=== PATIENT | male | born 1960 | race Caucasian/White ===

== ENCOUNTER 2020-01-02 14:21 | Inpatient (IN) | payer OTHER, SELFPAY ==
[2020-01-02] VITALS (11 sets, daily range): BP systolic 111–151; BP diastolic 78–105; PULSE 66–148; RESP 18–27; TEMP 36.6–37.1; O2SAT 96–99
--- NOTE | ~2020-01-02 | XR_ITS ---
EXAMINATION: XR abdomen/kub 1V INDICATION: Abdominal distention and left upper quadrant pain TECHNIQUE: Supine views of the abdomen were obtained on 2 radiographs. COMPARISON: None FINDINGS: The bowel gas pattern is normal. No dilated loops of bowel are seen. There is moderate lumb ar spondylosis. No abnormal calcifications are identified. Cardiomegaly is noted. IMPRESSION: 1. No radiographic correlate for the patient's symptoms. Reviewed, dictated and finalized at location A.
--- NOTE | ~2020-01-02 | XR_ITS ---
EXAMINATION: XR chest 2V DATE: 01/02/2020 15:12 INDICATION: Shortness of breath and loss of appetite TECHNIQUE: PA and lateral views of the chest are obtained. COMPARISON: 08/29/2015 FINDINGS: There are minimal right basilar airspace opacities. Small right pleural effusion is present . There is no pneumothorax. The cardiomediastinal silhouette is normal. There is mild thoracic spondy losis. IMPRESSION: 1. Small right pleural effusion with likely passive atelectasis of the right lung base. 2. Cardiomegaly. Reviewed, dictated and finalized at location A. IMPRESSION: 1. Small right pleural effusion with likely passive atelectasis of the right ishaan ng base. 2. Cardiomegaly.
--- NOTE | ~2020-01-02 | NM_ITS ---
EXAMINATION: NM hepatobiliary w pharm DATE: 01/03/2020 11:25 INDICATION: Abdominal pain. Abnormal right upper quadrant ultrasound. COMPARISON: Ultrasound dated 01/02/2020 TECHNIQUE: 5.1 mCi Tc-99m mebrofenin (Choletec) was administered intravenously. Scintigraphic images of the abdomen were obtained for one hour. 1.5 mcg sincalide (Kinevac) was administered by slow intr avenous infusion, and imaging was continued for 30 minutes. Gallbladder ejection fraction was calcula kenneth by the technologist. FINDINGS: There is normal clearance of radiotracer from the blood pool. There is homogeneous tracer uptake by t he liver. Activity progresses to the gallbladder and bowel. The gallbladder ejection fraction (GBEF) is 71% (normal 10-90%, but most patient with gallbladder dysfunction have GBEF < 35% which does over lap with the normal range). IMPRESSION: 1. Normal hepatobiliary scan. Reviewed, dictated and finalized at location A.
--- NOTE | ~2020-01-02 | US_ITS ---
US right upper quadrant DATE: 01/02/2020 16:06 INDICATION: Abdominal pain TECHNIQUE: Real-time imaging of liver, pancreas, gallbladder areas COMPARISON: 01/02/2020 KUB FINDINGS: Examination is limited due to difficulty penetrating the liver. No apparent hepatic or pancreatic space-occupying mass lesion is noted. Normal portal venous flow direction. The gallbladder wall is thickened, with mild pericholecystic fluid. No gallstones are identified. Neg ative sonographic Mckeon's sign. IMPRESSION: Gallbladder wall thickening and mild pericholecystic fluid; cannot exclude acute cholecys titis. Consider radionuclide hepatobiliary scan as clinically appropriate Reviewed, dictated and finalized at Location A. Reviewed, dictated and finalized at location A. IMPRESSION: Gallbladder wall thickening and mild pericholecystic fluid; cannot exclude acute cholecystitis. Consider radionuclide hepatobiliary scan as clinic ally appropriate
--- NOTE | 2020-01-02 14:34 | ECG_ITS ---
Measurements Intervals [place] Rate: 177 P: NM: 0 QRS: 50 QRSD: 96 T: 69 QT: 248 QTc: 426 Interpretive Statements ATRIAL FIBRILLATION WITH RAPID VENTRICULAR RESPONSE ABNORMAL ECG Electronically Signed On 01-02-2020 15:28:43 CDT by Robbin Kauffman D.O.
--- NOTE | 2020-01-02 14:50 | ED.ABDPAIN ---
HPI - Abdominal Pain General Chief Complaint: Abdominal Pain Stated Complaint: ABD PAIN/L FLANK PAIN Time Seen by Provider: 01/02/20 14:26 History of Present Illness HPI narrative: Patient is a 59-year-old male who presents ER with complaint of epigastric abdominal discomfort. Ongoing for the last week. No radiation. States he feels like he is full. Odors of food make him extremely nauseated. He also notes that he has been much more fatigued and having shortness of breath with exertion. No chest pain/chest pressure. Reports he is attempted to use restroom over 10 times a day with minimal results. Reports he has been belching slightly more than typical. No history of abdominal surgeries. Related Data Home Medications Medication Instructions Recorded Confirmed No Home Medications 01/02/20 01/02/20 Allergies Allergy/AdvReac Type Severity Reaction Status Date / Time No Known Allergies Allergy Unverified 01/02/20 14:48 Review of Systems Review of Systems: All systems reviewed & are unremarkable except as noted in HPI and below Constitutional: Constitutional: Denies chills, Denies fever(s) and Reports weakness Cardiovascular: Cardiovascular: Denies chest pain and Denies radiating jaw, neck or arm pain Respiratory: Respiratory: Denies cough, Reports dyspnea and Denies wheezing Gastrointestinal: Gastrointestinal: Reports abdominal pain, Reports bloating, Denies diarrhea, Reports nausea and Denies vomiting Genitourinary: Genitourinary: Denies dysuria and Denies urinary frequency PMFSH Past Medical History Medical History (Updated 01/02/20 @ 16:23 by Daryl Culver MD) Gastric ulcer No pertinent past medical history Surgical History Surgical History (Updated 01/02/20 @ 15:00 by Daryl Culver MD) H/O foot surgery Family History Family History (Updated 05/10/14 @ 07:13 by DOCTOR UNKNOWN) Father Hypertension Social History Social History Smoking status: Former smoker Smoking end date: 09/13/98 Alcohol intake: current Gender identity (if verbalized by the patient): Male Exam Narrative: Exam Narrative: GENERAL: Well-appearing, well-nourished, and in no acute distress. HEAD: Normocephalic, atraumatic. ENT: Mucous membranes moist. NECK: Supple. CHEST: Clear to auscultation. No respiratory distress. HEART: Tachycardic and irregular regular. Loud murmur heard best to the left lower sternal border, precordial normal peripheral pulses. ABDOMEN: Soft, mildly distended with epigastric tenderness. EXTREMITIES: Normal range of motion. No edema. SKIN: Warm, dry, no rash. NEURO: Alert and oriented x3. PSYCH: Normal mood and affect. Course Course Emergency Course: Admit to the hospitalist service. Cardiology will consult. Patient on diltiazem drip. Will obtain HIDA scan tomorrow. Vital Signs Vital signs: Vital Signs Temperature 98.8 F 01/02/20 14:26 Pulse Rate 66 01/02/20 14:26 Respiratory Rate 18 01/02/20 14:26 Blood Pressure 151/92 H 01/02/20 14:26 Pulse Oximetry 98 01/02/20 14:26 Temperature 98.8 F 01/02/20 14:26 Pulse Rate 126 H 01/02/20 16:03 Respiratory Rate 18 01/02/20 16:03 Blood Pressure 129/94 H 01/02/20 16:03 Pulse Oximetry 99 01/02/20 16:03 MDM - Abdominal Pain Lab Data Result diagrams: 01/02/20 14:42 01/02/20 14:42 Labs: Lab Results 01/02/20 01/02/20 01/02/20 Range/Units 14:42 14:42 14:42 WBC 11.5 H (4.5-10.0) K/mm3 RBC 4.90 (4.6-6.20) M/mm3 Hgb 15.5 (14.0-18.0) g/dL Hct 44.1 (42.0-52.0) % MCV 90.0 (80-100) fl MCH 31.6 (26-34) pg MCHC 35.1 (32-36) g/dl RDW 12.9 (11.5-14.5) % Plt Count 207 (150-375) k/mm3 MPV 10.4 (7.4-10.4) fl Immature Gran % (Auto) 0.5 (0-0.5) % Neut % (Auto) 73.8 H (45.5-73.1) % Lymph % (Auto) 16.0 L (18.3-44.2) % Howell % (Auto) 9.2 H (2.6-8.5) % Eos % (Auto) 0.1 (0-4.4) % Baso % (Auto)
[2020-01-02 14:51] LABS: Basophils Absolute Auto 0.1 K/mm3 (0.0-0.1); Basophils Percent Auto 0.4 % (0.2-1.2); Eosinophils Percent Auto 0.1 % (0-4.4); Hematocrit 44.1 % (42.0-52.0); Hemoglobin 15.5 g/dL (14.0-18.0); Immature Granulocyte Absolute 0.06 K/mm3 (0.00-0.031); Immature Granulocyte Percent A 0.5 % (0-0.5); Lymphocytes Absolute Auto 1.84 K/mm3 (0.9-3.2); Mean Corpuscular HGB Conc 35.1 g/dl (32-36); Mean Corpuscular Hemoglobin 31.6 pg (26-34); Mean Platelet Volume 10.4 fl (7.4-10.4); Monocytes Absolute Auto 1.1 K/mm3 (0.1-0.6); Monocytes Percent Auto 9.2 % (2.6-8.5); Neutrophils Absolute Auto 8.5 K/mm3 (1.3-6.7); Neutrophils Percent Auto 73.8 % (45.5-73.1); Platelet Count Result 207 k/mm3 (150-375); Red Cell Distribution Width 12.9 % (11.5-14.5); White Blood Count 11.5 K/mm3 (4.5-10.0)
[2020-01-02 15:01] LABS: INR 1.5; Partial Thromboplastin Time 28.1 SECONDS (22.3-36.8); Prothrombin Time 17.3 Seconds (11.1-14.7)
[2020-01-02 15:03] LABS: Alanine Aminotransferase 222 U/L (4-50); Albumin Level 3.9 g/dL (3.5-5.1); Alkaline Phosphatase 65 U/L (38-126); Aspartate Amino Transferase 238 U/L (17-59); Bilirubin,Total 1.1 mg/dL (0.2-1.3); Blood Urea Nitrogen 28 mg/dL (9-20); Calcium 8.9 mg/dL (8.4-10.2); Carbon Dioxide 20 mmol/L (22-30); Chloride 105 mmol/L (98-107); Estimated CRCL calculation 47 ml/min; Estimated Glomerular Filt Rate 52; Glucose 135 mg/dL (75-110); Potassium 3.9 mmol/L (3.4-5.0); Sodium 137 mmol/L (137-145)
[2020-01-02 15:15] LABS: Troponin I 0.027 ng/mL (0.000-0.034)
[2020-01-02 15:25] LABS: NT Pro B Type Natriuretic Pept 3480 PG/ML (5-100)
--- NOTE | 2020-01-02 17:02 | PM.PNCARD ---
Progress Note: A&P Assessment and Plan (1) Atrial fibrillation with rapid ventricular response: Code(s): I48.91 - Unspecified atrial fibrillation Status: Acute Assessment and Plan: He has atrial fibrillation initially with rapid ventricular response rate is better now with Cardizem, with start of metoprolol 25 b.i.d., and then maintain 60-70, he would need anticoagulation for the long run, but for the time being will not start anticoagulation in case he is going for any procedure. Will get echocardiogram to evaluate current left ventricular systolic function, and look for severity of mitral regurgitation (2) CHF (congestive heart failure): Code(s): I50.9 - Heart failure, unspecified Status: Acute Assessment and Plan: He seems to have acute decompensated congestive heart failure, probably worsened by atrial fibrillation. Will get echocardiogram to look for structural heart disease, continue with diuresis with Lasix 20 b.i.d. IV push (3) Mitral valve regurgitation: Code(s): I34.0 - Nonrheumatic mitral (valve) insufficiency Status: Acute Assessment and Plan: Echocardiogram for further evaluation Additional Plan Thank you for allowing me to participate in this patient's care, I will be following up with you. Please do not hesitate to call me for any other inquiry Subjective Date/time seen: 01/02/20 17:02 59 years old gentleman, with no significant past history, came to the hospital because of abdominal pain and noted to have palpitation his EKG showed atrial fibrillation with rapid ventricular response. He stated that he has been getting occasional episode of palpitation, not to the point that he would have to go to the hospital for that, however he was noted to have atrial fibrillation with rate as high as 150. Started on Cardizem drip with some improvement of the heart rate. Upon my evaluation in the emergency room his heart rate as 135, his blood pressure now is 128/60. No known history of cardiac disease is relatively active with no limitation. He admits to drinking alcohol on occasions, last drink was 2 days ago. He has [id number] shortness breath or dyspnea on exertion which has been noticed more lately, but no orthopnea, he has some [id number] leg swelling. No chest pain. No syncope Review of Systems Constitutional: Constitutional: Denies body ache(s), Denies chills, Reports fatigue and Reports lethargy Cardiovascular: Cardiovascular: Reports as per HPI, Denies chest pain, Reports pedal edema and Reports leg edema Respiratory: Respiratory: Reports dyspnea on exertion Gastrointestinal: Gastrointestinal: Reports abdominal pain Exam Narrative: Exam Narrative: Awake alert oriented x3 not in acute distress Neck is supple, has JVD, no carotid bruit Chest: Good air entry bilaterally, lungs are clear to auscultation and percussion bilaterally Cardiovascular: Irregularly irregular, 3/6 systolic murmur noted left sternal border, and a 3/6 systolic murmur at the apex with radiation to the axillary area Abdomen: Soft nontender bowel sounds positive Extremities: +1 edema has good pulses distally bilaterally Objective Data Vital Signs Vital Signs: Vital Signs - 24 hr 01/02/20 14:26 01/02/20 15:00 01/02/20 16:03 Temperature 37.1 C Pulse Rate 66 148 H 126 H Respiratory Rate 18 27 H 18 Blood Pressure 151/92 H 111/89 129/94 H Pulse Oximetry 98 97 99 01/02/20 16:55 Temperature Pulse Rate 130 H Respiratory Rate 27 H Blood Pressure 135/105 H Pulse Oximetry 98 Meds/Results Medications: Active Medications Generic Name Dose Route Start Last Admin Trade Name Freq PRN Reason Stop Dose Admin Acetaminophen 650 mg 01/02/20 16:00 Tylenol Tablet PO Q4H PRN Mild Pain (1-3) or Fever Hydrocodone Bitart/Acetaminophen 1 tab 01/02/20 16:00 Rayle 5-325 Mg PO Q4H PRN Pain Rated 4-6 Furosemide 20 mg 01/02/20 17:00 Lasix Inj I
--- NOTE | 2020-01-02 17:30 | PM.IMHP ---
H&P: HPI History of Present Illness Chief complaint: Abdominal pain. Narrative: Sergio Miguel is a very pleasant 59-year-old gentleman with remote history of peptic ulcer who presented to the emergency department earlier this afternoon from work for evaluation of abdominal pain. Over the past 1 week or so, he has had intermittent abdominal discomfort, mainly in the epigastrium and right upper quadrant. He has a difficult this time describing the pain but tells me ?it feels like indigestion.? It does occasionally radiate around to the back. He gives no significant aggravating factors, and tells me that on occasion fluid will help with the discomfort, and on other occasions it will make the discomfort worse. He also reports a decrease in appetite and occasional early satiety. While at work today, he developed severe nausea when he walked into the break room as well as racing heart, shortness of breath, and dizziness. Because he continues to have these symptoms, he came into the emergency department today for evaluation. On arrival, he was found to be in atrial fibrillation with rapid ventricular response, which is a new diagnosis for him. With further questioning, he does admit that he has had intermittent racing heart and palpitations since July 2019. They last anywhere from a few minutes up to a half of an hour and occur perhaps 1 time per month. His creatinine was also elevated, and he gives no history of known kidney disease. He does admit that he feels a bit dehydrated due to decreased oral intake and decreased liquid intake, as the water fountain is at work have been closed down for the last month due to the COVID-19 pandemic, and he rarely gets time to go to the break room for drinks during the work day. He has since noticed a decrease in his urine output and darker urine. He has not had exertional chest pain or shortness of breath. No known history of gallbladder disease. No history of pancreatitis. Review of Systems Review of Systems: Narrative: Twelve systems were reviewed with pertinent positives and negatives as per HPI. Weight has remained stable. No headache. No fever, chills, or sweats. No recent cold or flu-like symptoms. No vomiting or diarrhea. He has occasional edema about the ankles when removing his socks after a long day of work. No history of venous thromboembolism. No history of alcohol withdrawal signs or symptoms. Except as documented, all other systems were reviewed and are negative. [facility] Past Medical History Medical History (Updated 01/02/20 @ 21:18 by Nina Aguilar PA-C) Gastric ulcer As a senior in high school. Surgical History Surgical History (Updated 01/02/20 @ 21:13 by Nina Aguilar PA-C) History of foot surgery Bone spurs removed from foot. Family History Family History (Updated 01/02/20 @ 21:14 by Nina Aguilar PA-C) Father Dementia Mother Hypertension Sibling Epilepsy Social History Social History (Updated 01/02/20 @ 21:14 by Nina Aguilar PA-C) Social History: The patient is and lives with his in [place], [place]. They have 2 children, who are healthy. He smoked maybe a quarter of a pack of cigarettes per day for 5 to 10 years and quit in 1998. He drinks maybe 2 beers a day. No drug use. His , Jaclyn, is his surrogate decision maker and he wishes to be a full code. Smoking packs per day: 0.25 Smoking cigarettes per day: 5.0 Years smoked: 5 Smoking pack-years: 1.25 Spiritual care concerns: No Agree to blood products: Yes Meds Home Medications and Allergies Home Medications Medication Instructions Recorded Confirmed Type No Home Medications 01/02/20 01/02/20 History Allergies Allergy/AdvReac Type Severity Reaction Status Date / Time No Known Allergies Allergy Verified 01/02/20 17:49 Vital Signs Vital Signs - 24 hr 01/02/20 14:26 01/02/20 15:00 01/02/20 16:03 Temperature 98.8 F
[2020-01-02] MEDS: FUROSEMIDE INJ 40 MG/4 ML VIAL 20 MG IV PUSH (17:47)
--- NOTE | 2020-01-02 17:58 | ADMGEN ---
This patient, Sergio Miguel, was admitted to IMU Room 231-01 on 01-02-2020 at 1725. Patient/family oriented to hospital policies and general routines including ID bracelet, bed and alarms, visiting hours, pain management, procedures, bathroom and other care routines, personal items, smoking policy, room service/diet, and visiting hours. Valuables list has been completed. Information on how to activate the Rapid Response Team has been discussed. Patient/Family are encouraged to report perceived risks to care and to ask questions if they do not understand what they are told or what they should do.
[2020-01-02] MEDS: METOPROLOL TARTRATE 25 MG TABLET PO (20:52)
[2020-01-03] VITALS (39 sets, daily range): BP systolic 94–147; BP diastolic 63–92; PULSE 52–142; RESP 15–21; TEMP 36.5–37.9; O2SAT 94–100
--- NOTE | 2020-01-03 | ECHO_ITS ---
Patient Info Name: Sergio Miguel Age: 59 years : 1960 Gender: Male Ht: 66 in Wt: 163 lbs BSA: 1.87 m2 HR: 135 bpm BP: 109 / 74 mmHg Heart Rhythm: Atrial Fibrillation Technical Quality: Good Exam Date: 01/03/2020 11:51 AM Exam Location: [facility] Patient Status: Inpatient Admit Date: 01/03/2020 Staff Ordering Physician: Robert Vasquez MD ([email or web address]) Rad Technologist: Jewel Win RDCS Attending Provider: Laura Mueller MD Exam Type: CA echo transesophageal Study Info Indications I34.0 - Nonrheumatic mitral (valve) insufficiency Three dimensional echocardiographic imaging is performed during the transesophageal echocardiogram. Complete two-dimensional, color flow and Doppler transesophageal study is performed. History/Risk Factors Mitral regurtitation. Medications The patient was premedicated with 5.00 mg intravenous Versed. The patient was premedicated with 100.00 mcg intravenous Fentanyl. The patient was administered viscous Xylocaine 2% by mouth. Sedation started time 11:52, end time 12:27. Sedation was administered by registered nurse under my supervision. Procedure Details The patient arrived in a fasting state after obtaining informed consent. The transesophageal probe was passed into the posterior pharynx, mid-esophagus, distal esophagus, and gastric fundus. Imaging was performed at multiple levels. The patient tolerated the procedure well and there were no complications. The patient was transferred out of the examination area in satisfactory condition. th. Summary 1. There is severe mitral regurgitation with eccentric (anteriorly directed) jet. There is flail P2 segment of the posterior mitral leaflet causing very eccentric jet with severe mitral regurgitation. 2. Aortic valve leaflets are mildly thickened. 3. There is mild to moderate aortic valve regurgitation. 4. The left ventricle is mildly dilated in size. 5. The left ventricular systolic function is normal. EF 60%. 6. No PFO by color doppler and by agitated saline. 7. No left atrial appendage thrombus. 8. Patient is in Atrial fibrillation with heart rate of \R\120. Left Ventricle The left ventricle is mildly dilated in size. The left ventricular systolic function is normal. EF 60%. Patient is in Atrial fibrillation with heart rate of \R\120. Right Ventricle The right ventricle is normal in size and systolic function. Left Atria The left atrium is mildly to moderately dilated. Right Atria The right atrium is normal in size. Atrial Septum No PFO by color doppler and by agitated saline. Atrial Appendage No left atrial appendage thrombus. Aortic Valve The aortic valve is trileaflet. Aortic valve leaflets are mildly thickened. There is no aortic valve stenosis. There is mild to moderate aortic valve regurgitation. Pulmonic Valve The pulmonic valve is normal. There is no pulmonic valve stenosis. There is no pulmonic regurgitation. Mitral Valve There is severe mitral regurgitation with eccentric (anteriorly directed) jet. There is flail P2 segment of the posterior mitral leaflet causing very eccentric jet with severe mitral regurgitation. Tricuspid Valve The tricuspid valve leaflets are normal. There is mild tricuspid valve regurgitation. Pericardium/Pleural The pericardium appears normal. There is no pericardial effusion. Aorta The aortic root size at the sinus of Valsalva is normal. The prox ascending aorta si
[2020-01-03 00:08] LABS: Troponin I 0.042 ng/mL (0.000-0.034)
[2020-01-03 05:11] LABS: Hematocrit 39.5 % (42.0-52.0); Hemoglobin 13.6 g/dL (14.0-18.0); Mean Corpuscular HGB Conc 34.4 g/dl (32-36); Mean Corpuscular Hemoglobin 31.6 pg (26-34); Mean Corpuscular Volume 91.9 fl (80-100); Mean Platelet Volume 10.7 fl (7.4-10.4); Platelet Count Result 176 k/mm3 (150-375); Red Cell Distribution Width 13.2 % (11.5-14.5); White Blood Count 9.7 K/mm3 (4.5-10.0)
[2020-01-03 05:24] LABS: Alanine Aminotransferase 214 U/L (4-50); Albumin Level 3.3 g/dL (3.5-5.1); Alkaline Phosphatase 51 U/L (38-126); Aspartate Amino Transferase 145 U/L (17-59); Bilirubin,Total 1.3 mg/dL (0.2-1.3); Blood Urea Nitrogen 21 mg/dL (9-20); Calcium 8.3 mg/dL (8.4-10.2); Carbon Dioxide 24 mmol/L (22-30); Chloride 104 mmol/L (98-107); Estimated CRCL calculation 59 ml/min; Estimated Glomerular Filt Rate > 60; Glucose 91 mg/dL (75-110); Phosphorus 3.9 mg/dL (2.5-4.5); Potassium 3.3 mmol/L (3.4-5.0); Sodium 137 mmol/L (137-145)
--- NOTE | 2020-01-03 06:00 | ECHO_ITS ---
Patient Info Name: Sergio Miguel Age: 59 years : 1960 Gender: Male Ht: 66 in Wt: 163 lbs BSA: 1.87 m2 HR: 110 bpm BP: 106 / 75 mmHg Heart Rhythm: Atrial Fibrillation Technical Quality: Good Exam Date: 01/03/2020 8:58 AM Exam Location: [facility] Patient Status: Inpatient Admit Date: 01/02/2020 Staff Ordering Physician: Daryl Culver MD Electro Plater: Jewel Win RDCS Attending Provider: Laura Mueller MD Referring Physician: Palomo JEFFREY; Exam Type: CA echo doppler color flow Study Info Indications I48.1 - Persistent atrial fibrillation Complete two-dimensional, color flow and Doppler transthoracic echocardiogram is performed. Strain analysis performed. History/Risk Factors Atrial fibrillation w/ RVR; CHF, murmur, trop bump and BNP 3480. Summary 1. Left ventricular chamber dimension is mildly enlarged. 2. Left ventricular systolic function is normal, estimated at 60-65%. 3. Left atrial chamber dimension is moderately enlarged. 4. There is flail segment of the posterior mitral valve leaflet (likely P2 segment) associated with eccentric (anteriorly directed) mitral regurgitation jet. Mitral regurgitation is at least moderate (could be underestimated due to very eccentric jet). 5. Moderate pulmonary hypertension, estimated pulmonary arterial systolic pressure is 60-65 mmHg. 6. Dilated inferior vena cava with <50% collapse upon inspiration consistent with elevated right atrial pressure. Left Ventricle Left ventricular chamber dimension is mildly enlarged. Left ventricular systolic function is normal, estimated at 60-65%. There is no increased left ventricular wall thickness. Left ventricular septal wall motion is normal. The left ventricular diastolic function is indeterminate. Right Ventricle Right ventricular chamber dimension is top normal in size. Right ventricular systolic function is normal. Left Atria Left atrial chamber dimension is moderately enlarged. Right Atria Right atrial chamber dimension is normal. Aortic Valve The aortic valve is trileaflet. There is mild aortic valve sclerosis. There is no aortic valve stenosis. There is no aortic valve regurgitation. Pulmonic Valve The pulmonic valve is normal. There is no pulmonic valve stenosis. There is no pulmonic regurgitation. Mitral Valve There is no mitral valve stenosis. There is no mitral valve regurgitation. There is flail segment of the posterior mitral valve leaflet (likely P2 segment) associated with eccentric (anteriorly directed) mitral regurgitation jet. Mitral regurgitation is at least moderate (could be underestimated due to very eccentric jet). }. Tricuspid Valve The tricuspid valve leaflets are normal. There is no significant tricuspid valve stenosis. There is trace tricuspid valve regurgitation. Moderate pulmonary hypertension, estimated pulmonary arterial systolic pressure is 60-65 mmHg. Pericardium/Pleural The pericardium appears normal. There is no pericardial effusion. Inferior Vena Cava Dilated inferior vena cava with <50% collapse upon inspiration consistent with elevated right atrial pressure. Aorta The aortic root size at the sinus of Valsalva is normal. The prox ascending aorta size is normal. Left Ventricular Outflow Tract Name Value Normal
[2020-01-03 06:17] LABS: Hepatitis B Surface Antigen Negative (Negative)
[2020-01-03 06:22] LABS: HAV RESULT Negative (Negative); Hepatitis B Core IgM Result Negative (Negative)
[2020-01-03 06:34] LABS: Hepatitis C Virus Antibody Negative (Negative)
--- NOTE | 2020-01-03 08:17 | PM.PNCARD ---
Progress Note: A&P Assessment and Plan (1) Mitral valve regurgitation: Code(s): I34.0 - Nonrheumatic mitral (valve) insufficiency Status: Acute Assessment and Plan: Echo showed flail segment of posterior mitral valve leaflet. Will plan CHA today to better assess MR. Will plan [facility] tomorrow am to identify anatomy before surgery that would potentially need to be done for mitral repair (vs mitral clip) (2) Atrial fibrillation with rapid ventricular response: Code(s): I48.91 - Unspecified atrial fibrillation Status: Acute Assessment and Plan: Will wean off Cardizem drip and up titrate Metoprolol to 50 mg BID He will need AC but will hold starting till done with [facility] and also pending timing of surgery (3) CHF (congestive heart failure): Code(s): I50.9 - Heart failure, unspecified Status: Acute Assessment and Plan: Continue gentle diuresing with Lasix 20 b.i.d. IV. Creatinine better with diuresing. Additional Plan Thank you for allowing me to participate in this patient's care, I will be following up with you. Please do not hesitate to call me for any other inquiry Subjective Date/time seen: 01/03/20 08:17 No overnight events. abd pain resolved. Still in A fib, HR ~100-110. Denies chest pain or dyspnea. . Review of Systems Constitutional: Constitutional: Denies body ache(s), Denies chills, Reports fatigue and Reports lethargy Cardiovascular: Cardiovascular: Reports as per HPI, Denies chest pain, Reports pedal edema, Reports leg edema and Reports dyspnea on exertion Respiratory: Respiratory: Reports dyspnea on exertion Gastrointestinal: Gastrointestinal: Reports abdominal pain Endocrine: Endocrine: Reports fatigue Exam Narrative: Exam Narrative: Awake alert oriented x3 not in acute distress Neck is supple, has JVD, no carotid bruit Chest: Good air entry bilaterally, lungs are clear to auscultation and percussion bilaterally Cardiovascular: Irregularly irregular, 3/6 systolic murmur noted left sternal border, and a 3/6 systolic murmur at the apex with radiation to the axillary area Abdomen: Soft nontender bowel sounds positive Extremities: +1 edema has good pulses distally bilaterally Objective Data Vital Signs Vital Signs: Vital Signs - 24 hr 01/02/20 14:26 01/02/20 15:00 01/02/20 16:03 Temperature 37.1 C Pulse Rate 66 148 H 126 H Respiratory Rate 18 27 H 18 Blood Pressure 151/92 H 111/89 129/94 H Pulse Oximetry 98 97 99 01/02/20 16:55 01/02/20 17:35 01/02/20 17:42 Temperature 36.6 C Pulse Rate 130 H 140 H 137 H Respiratory Rate 27 H 18 Blood Pressure 135/105 H 122/85 Pulse Oximetry 98 99 01/02/20 18:00 01/02/20 19:54 01/02/20 20:00 Temperature 36.9 C Pulse Rate 131 H 69 121 H Respiratory Rate 18 Blood Pressure 150/78 H Pulse Oximetry 96 01/02/20 20:52 01/02/20 22:00 01/03/20 00:00 Temperature 36.8 C Pulse Rate 109 H 109 H 108 H Respiratory Rate 20 Blood Pressure 94/67 L Pulse Oximetry 98 01/03/20 02:00 01/03/20 04:00 01/03/20 06:00 Temperature 36.5 C Pulse Rate 99 102 H 105 H Respiratory Rate 18 Blood Pressure 106/75 Pulse Oximetry 99 Intake/Output Intake/Output: Intake & Output 12/31/19 01/01/20 01/02/20 01/03/20 23:59 23:59 23:59 23:59 Intake Total 652 300 Output Total 925 500 Balance -273 -200 Meds/Results Medications: Active Medications Generic Name Dose Route Start Last Admin Trade Name Freq PRN Reason Stop Dose Admin Acetaminophen 650 mg 01/02/20 16:00 Tylenol Tablet PO Q4H PRN Mild Pain (1-3) or Fever Hydrocodone Bitart/Acetaminophen 1 tab 01/02/20 16:00 [place] 5-325 Mg PO Q4H PRN Pain Rated 4-6 Furosemide 20 mg 01/02/20 17:00 01/02/20 17:47 Lasix Inj IV PUSH 20 mg BID BALBIR Administration Diltiazem HCl 100 mg in 100 mls @ 5 mls/hr 01/02/20 15:16 01/02/20 18:00 Cardizem 100 Mg/D5w 100 Ml IV CONT 12/13
[2020-01-03 09:28] LABS: Troponin I 0.026 ng/mL (0.000-0.034)
--- NOTE | 2020-01-03 13:47 | SUR.PHASEII ---
[address] Vasquez at bedside and recovery also done in room 231.
--- NOTE | 2020-01-03 14:23 | P.PCNCC_ITS ---
Cardiac Cath Procedure Note Date of procedure:: 01/03/20 Performing physician:: Eric Haywood MD Procedure: 1. Left heart catheterization, selective coronary angiogram. 2. Left ventricular angiogram. 3. Aortic root angiogram 4. Conscious sedation. Substance Abuse Prevention Coordinator: Dr. Eric Haywood Complications: None. Sedation: Conscious sedation, local anesthesia, using 1 mg of Versed said, 25 mcg of fentanyl, and using 1% lidocaine for local anesthesia. Technique: After informed consent was obtained from patient, was brought to the lab intern, put in the lab intern table, prepped and draped in usual sterile fashion. Five [place]i sheath was inserted into the right common femoral artery, through the sheath 5 [place] JL4 catheter inserted, advanced to the left coronary artery, left coronary artery angiogram was obtained. The catheter was exchanged over guidewire into a 5 [place] JR4 catheter, advanced to the right coronary artery, right coronary artery angiogram was obtained. The catheter then was exchanged over guidewire into this 5 [place]i pigtail catheter, advanced to left ventricle, left ventricular angiogram was obtained. The catheter then was pulled, the sheath was pulled applying manual pressure for arterial hemostasis. Patient tolerated the procedure no complication, taken from the lab intern to his room in stable condition stable vital signs. Hemodynamics: aortic pressure 96/60 . LV pressure 94/04 with LVEDP of 18 mmHg Angiographic findings: Left main: Medium size artery no significant disease or stenosis. Lad medium size artery showed no significant coronary artery disease Left circumflex artery, medium size artery, no significant disease or stenosis. RCA: Dominant vessel, showed no significant disease or stenosis LV: Normal size left ventricle with normal left ventricular systolic function. With severe mitral valve regurgitation. Aortic root angiogram showed normal size aorta with moderate severe aortic valve regurgitation Summary: No significant coronary disease, severe mitral regurgitation, moderate to severe aortic valve regurgitation Recommendation: Patient will need mitral valve repair and possible aortic valve repair
[2020-01-03] MEDS: ACETAMINOPHEN 325 MG TABLET 650 MG PO (15:35)
--- NOTE | 2020-01-03 15:59 | SUR.PHASEII ---
1545 CHA disc and Cath disc given to pts Annamarie, instructed her to bring both discs to pts CTS appt for valve surgery.
--- NOTE | 2020-01-03 17:03 | PM.IMPN ---
Progress Note: A&P Assessment and Plan (1) Atrial fibrillation with rapid ventricular response: Code(s): I48.91 - Unspecified atrial fibrillation Status: Acute Assessment and Plan: He has been seen by Dr. Vasquez, whose input is appreciated. He recommends metoprolol 25 milligrams b.i.d. as well as long-term anticoagulation, Echocardiogram revealed normal EF of 60-65% but flail posterior mitral valve leaflet with moderate pulmonary hypertension. Michael and catheterization to follow. (2) Abdominal pain: Code(s): R10.9 - Unspecified abdominal pain Status: Acute Assessment and Plan: Concerning for cholecystitis given history and right upper quadrant ultrasound findings. But HIDA scan this a.m. normal uptake and normal ejection fraction indicating no acute cholecystitis (3) Transaminitis: Code(s): R74.0 - Nonspecific elevation of levels of transaminase and lactic acid dehydrogenase [LDH] Status: Acute Assessment and Plan: With negative HIDA scan probable passive congestion. Right upper quadrant ultrasound as detailed above. hepatitis panel negative too, and continue to monitor. (4) CHF (congestive heart failure): Code(s): I50.9 - Heart failure, unspecified Status: Acute Assessment and Plan: Findings of congestive heart failure with elevated BNP, small pleural effusion, and mild edema.probable rate induced or sedcondary to mitral valve Cautious diuresis with IV Lasix 20 milligrams b.i.d. Monitor volume status and renal function and creatinine down to 1.1 today Subjective Date/time seen: 01/03/20 17:03 Interval history: Date of visit 01/02. 59-year-old white male presents to the emergency room with some abdominal discomfort and found to have AFib RVR. Slightly elevated troponin and elevated LFTs admitted for evaluation. No chest pain and abdominal discomfort has subsided Exam Narrative: Exam Narrative: Blood pressure 118/70 pulse 68 sat afebrile saturating 94% on room air General: Well-developed, well-nourished male sitting up in bed in no acute distress. HEENT: PERRL, Sclerae anicteric. Neck: Supple. No bruits. Respiratory: Lungs are clear to auscultation bilaterally. Cardiovascular: Irregular rate and rhythm with S1-S2. . Systolic murmurs heard at the upper sternal border and at the apex radiating to the axilla. 3-12/17 Gastrointestinal: Abdomen is soft and nondistended with positive bowel sounds. . No voluntary guarding or rebound tenderness. Skin: Warm and dry. No rash or lesions on limited exam. Extremities: No edema bilaterally. Radial and pedal pulses intact. Neurological: Alert. Cranial nerves 2-12 are grossly intact. No gross focal deficits . Psychiatric: Pleasant and cooperative with normal mood and affect. Judgment and insight intact. Objective Data Vital Signs Vital Signs: Vital Signs - 24 hr 01/02/20 17:35 01/02/20 17:42 01/02/20 18:00 Temperature 36.6 C Pulse Rate 140 H 137 H 131 H Respiratory Rate 18 Blood Pressure 122/85 Pulse Oximetry 99 01/02/20 19:54 01/02/20 20:00 01/02/20 20:52 Temperature 36.9 C Pulse Rate 69 121 H 109 H Respiratory Rate 18 Blood Pressure 150/78 H Pulse Oximetry 96 01/02/20 22:00 01/03/20 00:00 01/03/20 02:00 Temperature 36.8 C Pulse Rate 109 H 108 H 99 Respiratory Rate 20 Blood Pressure 94/67 L Pulse Oximetry 98 01/03/20 04:00 01/03/20 06:00 01/03/20 08:00 Temperature 36.5 C 36.8 C Pulse Rate 102 H 105 H 106 H Respiratory Rate 18 16 Blood Pressure 106/75 113/78 Pulse Oximetry 99 97 01/03/20 10:00 01/03/20 11:15 01/03/20 11:45 Temperature 36.9 C Pulse Rate 102 H 84 130 H Respiratory Rate 18 18 Blood Pressure 117/71 123/
[2020-01-03] MEDS: METOPROLOL TARTRATE 25 MG TABLET PO (17:44)
[2020-01-03] MEDS: FUROSEMIDE INJ 40 MG/4 ML VIAL 20 MG IV PUSH (17:45)
[2020-01-03] MEDS: POTASSIUM CHLORIDE 20 MEQ TABLET 40 MEQ PO (19:16)
[2020-01-03] MEDS: DIGOXIN INJ 250 MCG/ML 2 ML AMP (*BKC) IV PUSH (21:09)
[2020-01-04] VITALS (12 sets, daily range): BP systolic 103–113; BP diastolic 70–76; PULSE 86–140; RESP 20; TEMP 36.6–36.7; O2SAT 97–100
[2020-01-04 04:51] LABS: Basophils Percent Auto 0.2 % (0.2-1.2); Eosinophils Absolute Auto 0.2 K/mm3 (0-0.3); Eosinophils Percent Auto 1.6 % (0-4.4); Hematocrit 40.4 % (42.0-52.0); Hemoglobin 13.7 g/dL (14.0-18.0); Immature Granulocyte Absolute 0.05 K/mm3 (0.00-0.031); Immature Granulocyte Percent A 0.5 % (0-0.5); Lymphocytes Percent Auto 14.1 % (18.3-44.2); Mean Corpuscular HGB Conc 33.9 g/dl (32-36); Mean Corpuscular Volume 91.4 fl (80-100); Mean Platelet Volume 10.2 fl (7.4-10.4); Monocytes Percent Auto 9.9 % (2.6-8.5); Neutrophils Absolute Auto 7.3 K/mm3 (1.3-6.7); Neutrophils Percent Auto 73.7 % (45.5-73.1); Platelet Count Result 161 k/mm3 (150-375); Red Blood Count 4.42 M/mm3 (4.6-6.20); White Blood Count 9.9 K/mm3 (4.5-10.0)
[2020-01-04 05:12] LABS: Alanine Aminotransferase 170 U/L (4-50); Albumin Level 3.1 g/dL (3.5-5.1); Alkaline Phosphatase 55 U/L (38-126); Aspartate Amino Transferase 77 U/L (17-59); Bilirubin,Total 1.3 mg/dL (0.2-1.3); Blood Urea Nitrogen 16 mg/dL (9-20); Calcium 8.1 mg/dL (8.4-10.2); Carbon Dioxide 28 mmol/L (22-30); Chloride 104 mmol/L (98-107); Estimated CRCL calculation 71 ml/min; Estimated Glomerular Filt Rate > 60; Glucose 95 mg/dL (75-110); Potassium 3.7 mmol/L (3.4-5.0); Sodium 136 mmol/L (137-145)
[2020-01-04] MEDS: DIGOXIN INJ 250 MCG/ML 2 ML AMP (*BKC) 125 MCG IV PUSH (09:24)
[2020-01-04] MEDS: FUROSEMIDE INJ 40 MG/4 ML VIAL 20 MG IV PUSH (09:24)
[2020-01-04] MEDS: METOPROLOL TARTRATE 50 MG TAB PO (09:24)
--- NOTE | 2020-01-04 09:25 | PM.PNCARD ---
Progress Note: A&P Assessment and Plan (1) Mitral valve regurgitation: Code(s): I34.0 - Nonrheumatic mitral (valve) insufficiency Status: Acute Assessment and Plan: Patient underwent CHA yesterday that confirmed severe mitral regurgitation due to flail P2 segment. He was also noted to have moderate AI which was not appreciated on transthoracic echo Outpatient follow up arranged with CT surgery (Dr Osborn) next week for mitral repair. He may also possible need intervention on the aortic valve. (2) Atrial fibrillation with rapid ventricular response: Code(s): I48.91 - Unspecified atrial fibrillation Status: Acute Assessment and Plan: Agree with increasing Metoprolol dose. Will finish IV digoxin load as well (recived 250 mcg last night, will order 125 mcg now and another dose in 6 hours) then may start oral digoxin tomorrow at 125 mcg daily Will start Xarelto 20 mg daily for stroke prevention. (3) CHF (congestive heart failure): Code(s): I50.9 - Heart failure, unspecified Status: Acute Assessment and Plan: EF ~60-65% which is technically low normal considering degree of MR. Better compensated with IV lasix. Will switch to PO. Additional Plan Thank you for allowing me to participate in this patient's care, I will be following up with you. Please do not hesitate to call me for any other inquiry Subjective Date/time seen: 01/04/20 09:25 He feels better over all. Epigastric pain resolved. Denies dyspnea. Remains in A fib, Heart rate ~130 this am. Has not received his meds yet Review of Systems Constitutional: Constitutional: Denies body ache(s), Denies chills, Reports fatigue and Reports lethargy Cardiovascular: Cardiovascular: Reports as per HPI, Denies chest pain, Reports pedal edema, Reports leg edema and Reports dyspnea on exertion Respiratory: Respiratory: Reports dyspnea on exertion Gastrointestinal: Gastrointestinal: Reports abdominal pain Endocrine: Endocrine: Reports fatigue Exam Narrative: Exam Narrative: Awake alert oriented x3 not in acute distress Neck is supple, has JVD, no carotid bruit Chest: Good air entry bilaterally, lungs are clear to auscultation and percussion bilaterally Cardiovascular: Irregularly irregular, 3/6 systolic murmur noted left sternal border, and a 3/6 systolic murmur at the apex with radiation to the axillary area Abdomen: Soft nontender bowel sounds positive Extremities: +1 edema has good pulses distally bilaterally Objective Data Vital Signs Vital Signs: Vital Signs - 24 hr 01/03/20 10:00 01/03/20 11:15 01/03/20 11:45 Temperature 36.9 C Pulse Rate 102 H 84 130 H Respiratory Rate 18 18 Blood Pressure 117/71 123/87 Pulse Oximetry 98 97 01/03/20 11:55 01/03/20 12:00 01/03/20 12:05 Temperature Pulse Rate 134 H 130 H 126 H Respiratory Rate 17 15 20 Blood Pressure 136/84 109/74 99/74 L Pulse Oximetry 100 98 98 01/03/20 12:10 01/03/20 12:15 01/03/20 12:20 Temperature Pulse Rate 121 H 136 H 128 H Respiratory Rate 21 H 19 21 H Blood Pressure 132/92 H 137/87 147/82 H Pulse Oximetry 96 99 94 01/03/20 12:25 01/03/20 12:30 01/03/20 12:45 Temperature 37.5 C Pulse Rate 142 H 126 H 125 H Respiratory Rate 20 20 15 Blood Pressure 137/80 112/88 115/77 Pulse Oximetry 100 100 97 01/03/20 13:00 01/03/20 14:00 01/03/20 14:15 Temperature 37.9 C H Pulse Rate 112 H 127 H 116 H Respiratory Rate 18 16 15 Blood Pressure 104/82 116/78 106/89 Pulse Oximetry 98 96 95 01/03/20 14:30 01/03/20 14:40 01/03/20 14:50 Temperature 37.7 C H 37.6 C Pulse Rate 107 H 95 96 Respiratory Rate 19 20 18 Blood Pressure 115/81 108/85 108/87 Pulse Oximetry 96 95 96 01/03/20 15:00 01/03/20 15:15 01/03/20 15:30 Temperature 37.4 C Pulse Rate 108 H 102 H 108 H Respiratory Rate 21 H 19 17 Blood Pressure 105/67 112/88 116/63 Pulse Oximetry 96 96 96 01/03/20 15:45 01/03/20 16:05 01/03/20 16:22 Temp
[2020-01-04] MEDS: DIGOXIN INJ 250 MCG/ML 2 ML AMP (*BKC) IV PUSH (14:24)
--- NOTE | 2020-01-05 18:15 | PM.DS ---
DS: Diagnosis Admitting Diagnosis Admitting Diagnosis: Unspecified atrial fibrillation Discharge Diagnosis (1) Atrial fibrillation with rapid ventricular response: Code(s): I48.91 - Unspecified atrial fibrillation Status: Acute Assessment and Plan: He has been seen by Dr. Vasquez,. metoprolol 50 milligrams b.i.d. as well as long-term anticoagulation, and Lanoxin was added for rate control since pressure was low Echocardiogram revealed normal EF of 60-65% but flail posterior mitral valve leaflet with moderate pulmonary hypertension. Michael revealed the flail mitral valve with mitral insufficiency and moderate aortic insufficiency. Cardiac catheterization revealed no significant coronary disease He will follow-up with Dr. garcia cardiothoracic surgeon in [address] of the chest to evaluate further at that time (2) Abdominal pain: Code(s): R10.9 - Unspecified abdominal pain Status: Acute Assessment and Plan: Concerning for cholecystitis given history and right upper quadrant ultrasound findings. But HIDA scan this a.m. normal uptake and normal ejection fraction indicating no acute cholecystitis and LFTs were trending down with negative serology for hepatitis l (3) Transaminitis: Code(s): R74.0 - Nonspecific elevation of levels of transaminase and lactic acid dehydrogenase [LDH] Status: Acute Assessment and Plan: With negative HIDA scan probable passive congestion. Right upper quadrant ultrasound as detailed above. hepatitis panel negative too, (4) CHF (congestive heart failure): Code(s): I50.9 - Heart failure, unspecified Status: Acute Assessment and Plan: Findings of congestive heart failure with elevated BNP, small pleural effusion, and mild edema.probable rate induced or sedcondary to mitral valve with no systolic or diastolic failure, valvular and possibly rate related in etiology Cautious diuresis with Lasix 20 milligrams p.o. daily and discharge creatinine down to 0.9 had discharge DS: Summary Hospital Course Hospital Course: 59-year-old white male presented to the emergency room with some shortness breath and right upper quadrant type discomfort. He was found to be in atrial fib rapid ventricular response. Right upper quadrant sonogram revealed no gallstones but there was gallbladder wall thickening with para cholecystic fluid. Hepatobiliary scan showed normal uptake with normal ejection fraction ruling out acute cholecystitis. Had a prominent systolic murmur and echocardiogram showed flail posterior leaflet confirmed by MICHAEL and also it michael moderate aortic insufficiency. Cardiac catheterization revealed no significant coronary disease. Cardiology arrange for him to have appointment with cardiothoracic surgeon next week for valve intervention. Will have CT of the chest prior 2 along with BMP to reassess renal status and electrolytes Time Spent with Patient Time attestation: Total time spent providing and/or coordinating discharge services: 35 minutes Exam Narrative: Exam Narrative: Condition on discharge blood pressure 104/76 pulse is 104 regular saturating 95% on room air afebrile Lungs clear CV irregular TONY murmurs Abdomen soft nontender Extremities without edema distal pulses are 2+ Neuro alert pleasant cooperative no focal deficits Discharge Plan Discharge Attending physician on discharge: Domenic Noriega Consulting providers: Robert Vasquez Discharging Clinician: Domenic Noriega Patient Disposition: Home, Self-Care Activity: other - see discharge instructions Diet: low sodium Discharge Instructions: Follow up with Daily on . 10:[address] [facility] [id number] - [phone] no
== END 2020-01-04 16:00 | disposition home or self-care (01) | DRG 287 ==
LOC: ANHED 16:23 → ANHIMU 16:34
PROVIDERS: Internal Medicine; Physician Assistant; Specialist; Admitting Provider Hospitalist; Emergency Provider Emergency Medicine; PCP Family Medicine; Visit Provider Internal Medicine
PROC: B24BZZ4 Ultrasonography of Heart with Aorta, Transesophageal (ICD-10-PCS; CPT 93312; principal; 2020-01-03 10:30)
PROC: 4A023N7 Measurement of Cardiac Sampling and Pressure, Left Heart, Percutaneous Approach (ICD-10-PCS; CPT 93452; principal; 2020-01-03 12:30)
DX: I48.91 Unspecified atrial fibrillation (principal); I35.1 Nonrheumatic aortic (valve) insufficiency; I34.0 Nonrheumatic mitral (valve) insufficiency; R74.0 Nonspecific elevation of levels of transaminase and lactic acid dehydrogenase [LDH]; I50.9 Heart failure, unspecified; N28.9 Disorder of kidney and ureter, unspecified; R10.9 Unspecified abdominal pain; Z87.891 Personal history of nicotine dependence; Z87.11 Personal history of peptic ulcer disease
CPT/HCPCS: 36415; 71046; 74018; 76705; 78227; 80053; 80074; 83735; 83880; 84100; 84443; 84484; 85025; 85027; 85610; 85730; 93005; 93306; 93312; 93320; 93325; 93458; 96365; 96366; 96375; 96376; 99285; A9270; A9537; C1887; C1894; G0378; J1160; J1200; J1644; J1940; J2250; J2805; J3010; J7040

== ENCOUNTER 2020-01-10 08:32 | Outpatient (CLI) | payer OTHER, SELFPAY ==
--- NOTE | ~2020-01-10 | CT_ITS ---
EXAMINATION: CTA chest DATE: 01/10/2020 09:39 INDICATION: Dilated aortic root. TECHNIQUE: Computed tomographic angiography (CTA) of the chest was performed with 100 mL Omnipaque-35 0 intravenous contrast. Automated exposure control and iterative reconstruction technique were employ ed. The dose-length product was 353.18 mGy-cm. Maximum intensity projection 3D-reconstructions of the aorta and other arteries were constructed by the technologist on a separate workstation. COMPARISON: None. FINDINGS: There is a 4 mm nodule in right lung upper lobe, likely benign. There are small pleural eff usions, right worse than left. There is mild dependent atelectasis bilaterally. There is left atrial enlargement of the heart. No pericardial effusion. The aorta measures 3.5 cm at the sinuses of [place], 3.6 cm in the mid ascending aorta, 2.6 cm at the isthmus, and 2.4 cm in the mid descending aorta. No atherosclerosis or dissection. There is mild thoracic spondylosis. IMPRESSION: 1. Normal thoracic aorta. 2. Small pleural effusions. 3. Left atrial enlargement of the heart. Reviewed, dictated and finalized at location A.
== END 2020-01-10 08:33 | disposition home or self-care (01) ==
LOC: ANHIMG 08:37
PROVIDERS: PCP Family Medicine; Visit Provider Internal Medicine
DX: I35.1 Nonrheumatic aortic (valve) insufficiency (principal); J90 Pleural effusion, not elsewhere classified; I51.7 Cardiomegaly
CPT/HCPCS: 71275; Q9967

== ENCOUNTER 2020-07-18 18:00 | Outpatient (RCR) | payer OTHER, SELFPAY ==
[2020-04-23 11:25] VITALS: PULSE 66
--- NOTE | 2020-05-29 09:53 | PCCPR ---
Pt called. Pt will not be attending CPR tonight due to a family event. He will be back tomorrow.
== END 2020-07-18 18:14 | disposition home or self-care (01) ==
LOC: ANHCPREHAB 18:00
PROVIDERS: PCP Family Medicine; Visit Provider Internal Medicine Cardiovascular Disease
DX: Z95.2 Presence of prosthetic heart valve (principal)
CPT/HCPCS: 93798